=== PATIENT | male | born 1970 | race Caucasian/White ===

== ENCOUNTER 2016-12-18 18:14 | Emergency (ER) | payer BC ==
[~2016-12-18 18:14] MED LIST: ADVIL200 M1; ALBUTEROL17 GM INH; BACTRIM DS TABL1 TA2 PO; DARVOCET-N 1001 TA1 PO; IBUPROFEN800 MG PO; LISINOPRIL-HCTZ1 T15 PO; LORTAB 7.51 TAB 7.5/ PO; MEDROL4 MG/DOSE- PO; NO MEDICATIONS; PHENERGAN DM1 ML PO; TAMIFLU75 M1 PO; TYLENOL325 M1 PO; VOLTAREN75 MG PO; ZITHROMAX PO
== END 2016-12-18 19:07 | disposition home or self-care (01) ==
LOC: SED 18:14
DX: S76.912A Strain of unspecified muscles, fascia and tendons at thigh level, left thigh, initial encounter (principal); W22.8XXA Striking against or struck by other objects, initial encounter
CPT/HCPCS: 99283